=== PATIENT | male | born 1950 | race Caucasian/White ===

== ENCOUNTER 2019-03-07 11:59 | Outpatient (CLI) | payer MEDICARE, BC, SELFPAY | END 2019-03-07 12:19 | PROVIDERS: PCP Family Medicine; Visit Provider Urology | DX: R97.20 Elevated prostate specific antigen [PSA] (principal); Z80.42 Family history of malignant neoplasm of prostate | CPT/HCPCS: 36415; 84154 ==

== ENCOUNTER 2019-10-04 02:34 | Outpatient (CLI) | payer MEDICARE, BC, SELFPAY ==
[2019-10-04 09:24] LABS: ALT 33 U/L (16-63); AST 28 U/L (15-37); Alkaline Phosphatase 67 U/L (46-116); Anion Gap 12.5 mmol/L (3-11); BUN 15 mg/dL (7-18); Bilirubin, Total 0.6 mg/dL (0.2-1.0); CO2 26.5 mmol/L (21.0-32.0); CREATININE 0.78 mg/dL (0.70-1.30); Calcium 8.6 mg/dL (8.5-10.1); Calculated LDL 141 mg/dL (<100); Chloride 106 mmol/L (98-107); Cholesterol 221 mg/dL (<200); Glucose 89 mg/dL (74-106); HDL Cholesterol 30 mg/dL (40-60); Potassium 3.7 mmol/L (3.5-5.1); Sodium 145 mmol/L (136-145); Total Protein 6.9 g/dL (6.4-8.2); Triglyceride 250 mg/dL (<150)
== END 2019-10-04 02:54 ==
PROVIDERS: PCP Family Medicine; Visit Provider Family Medicine
DX: I10 Essential (primary) hypertension (principal); E78.5 Hyperlipidemia, unspecified
CPT/HCPCS: 36415; 80053; 80061

== ENCOUNTER 2020-03-17 02:24 | Outpatient (CLI) | payer MEDICARE, BC, SELFPAY ==
[2020-03-18 11:56] LABS: Free PSA/PSA Ratio 0.31 ratio
== END 2020-03-17 02:44 ==
PROVIDERS: PCP Family Medicine; Visit Provider Urology
DX: R97.20 Elevated prostate specific antigen [PSA] (principal); Z80.42 Family history of malignant neoplasm of prostate
CPT/HCPCS: 36415; 84154

== ENCOUNTER → 2020-03-18 13:19 | Outpatient (BNVA) | payer MEDICARE, BC, SELFPAY | PROVIDERS: PCP Family Medicine; Visit Provider Urology | DX: R97.20 Elevated prostate specific antigen [PSA] (principal); I10 Essential (primary) hypertension; R39.89 Other symptoms and signs involving the genitourinary system | CPT/HCPCS: 99213 ==

== ENCOUNTER 2020-06-03 13:42 | Outpatient (CLI) | payer MEDICARE, BC, SELFPAY ==
[2020-06-05 13:04] LABS: Patient Race White; SARS-CoV-2 RNA Undetected (Undetected); SARS-CoV-2 Specimen Source Nasopharynx
== END 2020-06-03 14:02 ==
PROVIDERS: PCP Family Medicine; Visit Provider Family Medicine
DX: Z20.828 Contact with and (suspected) exposure to other viral communicable diseases (principal)
CPT/HCPCS: U0003

== ENCOUNTER 2020-07-25 04:52 | Outpatient (CLI) | payer MEDICARE, BC, SELFPAY ==
[2020-07-27 06:14] LABS: Patient Race White; SARS-CoV-2 RNA Undetected (Undetected); SARS-CoV-2 Specimen Source Nasal
== END 2020-07-25 05:12 ==
PROVIDERS: PCP Family Medicine; Visit Provider Family Medicine
DX: Z20.828 Contact with and (suspected) exposure to other viral communicable diseases (principal)
CPT/HCPCS: U0003

== ENCOUNTER 2020-10-16 22:01 | Emergency (ER) | payer MEDICARE, BC, SELFPAY ==
[2020-10-16 22:05] VITALS: BP 140/84; PULSE 86; RESP 20; TEMP 36.5; O2SAT 94
--- NOTE | 2020-10-16 22:17 | W.ED.GENAD ---
Discharge Plan Disposition Patient Disposition: HOME Condition: Stable Discharge Details Clinical Impression: Laceration of scalp, Head injury Primary Care Provider: Jessica Carlos ED Provider: Jesús Nunn Home Meds and New Rx's Prescriptions: Continued multivitamin [One Daily] 1 EACH tablet 1 tab PO DAILY RF: 0 aspirin [Aspirin Low-Strength] 81 MG tablet,chewable 1 tab PO EVERY OTHER DAY RF: 0 ketoconazole 15 GM cream 15 gm Topical BID Qty: 1 RF: 2 Fish Oil 340-1,000 mg capsule 1 cap PO .QOD RF: 0 metronidazole 0.75 % cream 1 applic TP BID PRN (Reason: rosacea) Qty: 45 RF: 6 hydrochlorothiazide 25 mg tablet 25 mg PO DAILY Qty: 90 RF: 4 pravastatin 40 mg tablet 40 mg PO DAILY Qty: 90 RF: 4 amlodipine-benazepril [Lotrel] 5-20 mg capsule 1 cap PO DAILY Qty: 90 RF: 4 amlodipine-benazepril 5-20 mg capsule 1 - 4 cap PO DAILY RF: 0 Discharge Instructions Instructions: Head Injury (ED), Staple Care (ED) Additional Instructions: CT of head is unremarkable. Laceration repaired with 5 maxime. Keep the area clean and dry. You may apply antibiotic ointment daily. Coxsackie should be removed in 5-7 days, please return to the ER for this or make an appoint with your primary care provider. Watch for new or worsening symptoms and return to the ER for any concerns. Lastly, I would recommend contacting your primary care provider tomorrow to discuss outpatient reevaluation. Medical Decision Making 70-year-old gentleman presents having slipped and fallen earlier today striking his head sustaining a laceration. Given his age, will obtain head CT for intracranial pathology. Laceration will need to be repaired. Will update tetanus as his last tetanus status was 2014. Laceration repaired without difficulty. Tetanus updated. CT of head read by radiology as no intracranial bleed or skull fracture Make patient aware of his results. He has no additional questions or concerns. Remained hemodynamically stable under my care Medical Records Medical records reviewed: Yes I reviewed the patient's medical records. Imaging Data Radiologic Study: Attestation: I personally reviewed and interpreted this imaging study as follows: Imaging: CT Scan Radiologist's impression: CT head negative per radiology HPI General Mode of arrival: ambulatory. Date/Time Provider Initiated Documentation: 10/16/20 22:10. Limitations to Documentation: no limitations. Information obtained by: patient. HPI Narrative: This is a 70-year-old gentleman, past medical history of hypercholesterolemia, hypertension, not anticoagulated, presents to the ER for a head injury. He states earlier this afternoon he slipped near the stairs, falling backward striking his head. He denies any symptoms prior to the fall. He denies LOC, global headache, neck pain, visual changes, chest pain, shortness of breath, abdominal pain, nausea, vomiting, incontinence, numbness, tingling, weakness. He does admit to 2 glasses of wine. He is unsure of his last tetanus shot. Related Data Home Medications Medication Instructions Recorded Confirmed aspirin [Aspirin Low-Strength] 1 tab PO EVERY OTHER DAY tab-cap 11/23/12 10/16/20 multivitamin [One Daily] 1 tab PO DAILY 11/23/12 10/16/20 ketoconazole 15 gm TOPICAL BID #1 tube 12/20/16 10/16/20 metronidazole 0.75 % topical cream 1 applic TP BID PRN #45 gm 10/02/18 10/16/20 omega-3 fatty acids-fish oil 340 1 cap PO .QOD cap 10/02/18 10/16/20 mg-1,000 mg capsule amlodipine 5 mg-benazepril 20 mg 1 cap PO DAILY #90 cap 04/23/20 capsule hydrochlorothiazide 25 mg tablet 25 mg PO DAILY #90 tab-cap 04/23/20 pravastatin 40 mg tablet 40 mg PO DAILY #90 tab-cap 04/23/20 10/16/20 amlodipine-benazepril 1 - 4 cap PO DAILY 10/16/20 10/16/20 Previous Rx's Medication Instructions Recorded metronidazole 0.75 % topical cream 1 applic TP BID PRN #45 gm 10/02/18 amlodipine 5 mg-benazepril 20 mg 1 cap PO DAILY #90 cap 04/23/20 capsule hydrochlorothiazide 25 mg tablet 25 mg PO DAILY #90 tab-cap 04/23/20 pravastatin 40 mg tablet 40 mg PO DAILY #90 tab-cap 04/23/20 Allergies Allergy/AdvReac Type Severity Reaction Status Date / Time No Known Allergies Allergy Unverified 10/16/20 22:13 General Stated Complaint: Laceration ALE: 4 Review of Systems Constitutional Constitutional: Denies headache(s) and Denies weakness Eyes Eyes: Denies change in vision ENT Ears, Nose, Mouth, and Throat: Denies headache(s) and Denies neck pain Cardiovascular Cardiovascular: Denies chest pain and Denies dyspnea Respiratory Respiratory: Denies cough and Denies dyspnea Gastrointestinal Gastrointestinal: Denies abdominal pain, Denies nausea and Denies vomiting Musculoskeletal Musculoskeletal: Denies back pain, Denies neck pain, Denies numbness and Denies tingling Neurologic Neurologic: Denies headache(s), Denies numbness, Denies tingling and Denies weakness Hematologic/Lymphatic Hematologic/Lymphatic: Denies easy bleeding and Denies easy bruising PFSH Medical History Adenomatous polyps Elevated PSA Hyperlipidemia hypertension Surgical History Colonoscopy - IV Sedation 2011 Extraction of cataract Family History Mother , age 91 Essential hypertension Heart disease Hyperlipidemia Stroke Father , age 87 Essential hypertension Hyperlipidemia Neoplasm PROSTATE Stroke Sister No problems noted. Brother No problems noted. Maternal Grandfather , AGE 84 Heart disease Stroke Paternal Grandfather , age 53 Stomach cancer Maternal Grandmother , age 58 Heart disease Paternal Grandmother , age 58 Stomach cancer Sister No problems noted. Sister No problems noted. Daughter No problems noted. Social History Smoking/Tobacco Use Status: Former Tobacco Use Quit Date: 08/29/81 Tobacco: How many years used: 7 Second Hand Exposure: No Smoking risk assessment performed?: Yes Alcohol Intake: current Alcohol Intake frequency: a few times a week Alcohol type: wine Drug use: Never Substance use type: does not use Caregiver/Support person: No Household members: spouse Housing: house Communication Needs: None Pets and animals: No Sexually active: Yes Do you think of yourself as: straight/heterosexual Current gender identity: male What is your relationship status?: How often do you talk on the phone with friends or family?: once per week How often do you get together with friends or relatives?: once per week How often do you attend baptist or synagogue services?: 4 or more times per year Do you belong to any clubs or organized social groups?: yes Panel score (0-1 are the most socially isolated patients): 3 What type of physical activity do you participate in: walking Duration: 60-90 minutes/day Frequency: daily Brooke/Jehovah'S Witness: Jew Special brooke needs: No Seatbelt use: always Helmet use: No Drive intox or ride w/intox 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 3 cm vertical laceration. No active bleeding. Mild diffuse localized discomfort without crepitus. No foreign body. Ears: external ears normal, TM's normal bilaterally and EAC's normal General nose exam: external nose normal Face and sinus: normal facial exam Mouth: moist mucous membranes Eyes General: appearance normal, both eyes and all related structures Alignment and Position: alignment normal Periorbital: periorbital findings normal Eyelids: eyelids normal Conjunctivae: conjunctivae normal Sclera: sclerae normal Cornea: corneas normal Pupils: PERRL EOM: EOM intact bilaterally Direct ophthalmoscopy: normal light reflex Neck Neck: normal visual inspection, full ROM, trachea midline, supple and nontender Resp Effort & Inspection: normal respiratory effort and able to speak in complete sentences Auscultation: clear to auscultation bilaterally Cardio Rate: regular rate Rhythm: regular rhythm GI Inspection: normal to inspection Palpation: soft and nontender Back/Spine/Pelvis Back: No back tenderness Skin General skin exam: no rashes or lesions noted Neuro General: patient alert, patient awake, patient oriented x3, moves all extremities and no focal motor deficits Cranial Nerves: CN's II-XI intact bilaterally Cognition: normal cognition Speech: speech normal Gait: normal gait Motor: muscle tone normal throughout Sensory Exam: no sensory deficits noted Extrem General: normal to inspection and full ROM Psych Appearance: grossly normal Mental Status: mental status grossly normal Course Vital Signs Vital signs: Vital Signs Temperature 36.5 C 10/16/20 22:05 Pulse 86 10/16/20 22:05 Respiratory Rate 20 10/16/20 22:05 Blood Pressure 140/84 10/16/20 22:05 Pulse Oximetry 94 10/16/20 22:05 Temperature 36.5 C 10/16/20 22:05 Temperature Source Skin 10/16/20 22:05 Pulse 86 10/16/20 22:05 Respiratory Rate 20 10/16/20 22:05 Respiratory Effort Non-Labored 10/16/20 22:09 Blood Pressure 140/84 10/16/20 22:05 Blood Pressure Position Sitting 10/16/20 22:05 Pulse Oximetry 94 10/16/20 22:05 Oxygen Delivery Method Room Air 10/16/20 22:05 Oxygen Flow Rate 0 10/16/20 22:05 Pain Level 0 10/16/20 22:14 Procedures Laceration Laceration 1: Site: scalp Side (If applicable): left Size (cm): 3 Description: linear Depth: simple, single layer Local Anesthetic: other anesthetic (LET) Amount of anesthesia used (mL): 4 Pre-repair: wound explored, irrigated extensively and deep structures intact Skin layer closed with: other (Coxsackie) Number of sutures: 5
[2020-10-16] MEDS: Lidocaine/Epinephri/Tetracaine Topical Gel 3 ML (22:18)
--- NOTE | 2020-10-16 22:26 | DI.CT_ITS ---
EXAM: CT HEAD WO CLINICAL HISTORY: fall/head injury. TECHNIQUE: Imaging Protocol: Axial computed tomography images with coronal and sagittal reformatted images were created and reviewed COMPARISON: No exams were available for comparison FINDINGS: Ventricles and Extra axial spaces: Normal in size and morphology for the patient's age. Hemorrhage: None. Cerebral parenchyma: Mild atrophy, consistent with the patient's age. Question of a an old lacunar i nfarct versus prominent perivascular space in the right basal ganglia. Midline shift: None. Brainstem/Cerebellum: Normal. Calvarium: Normal. Visualized Paranasal sinuses/Mastoids: Mild mucosal thickening anteriorly in the left maxillary sinus . Soft Tissues: Laceration left parietal scalp. IMPRESSION: Left parietal scalp laceration. No acute intracranial process. RADIATION DOSE DELIVERED: 912.66mGy.cm Total DLP DATA REPOSITORY: All CT scans at this facility are submitted to the National Radiology Data Registry (NRDR) Dose Index Registry (DIR) with the [employer] (ACR). RADIATION OPTIMIZATION: All CT scans at this facility use at least one of these dose optimization te chniques: automated exposure control; mA and/or kV adjustment per patient size (includes targeted exa ms where dose is matched to clinical indication); or iterative reconstruction.
--- NOTE | 2020-10-16 22:45 | DI.VRAD_ITS ---
PROCEDURE INFORMATION: Exam: CT Head Without Contrast Exam date and time: 10/16/2020 10:13 PM Age: 70 years old Clinical indication: Injury or trauma; Blunt trauma (contusions or hematomas) and laceration; Consciousness not specified; Without residual foreign body; Scalp; Injury date: 10/16/20; Injury details: Fall/ laceration to left parietal region; Patient HX: Head trauma 7+/- years ago TECHNIQUE: Imaging protocol: Computed tomography of the head without contrast. Total images: 1066 Radiation optimization: All CT scans at this facility use at least one of these dose optimization techniques: automated exposure control; mA and/or kV adjustment per patient size (includes targeted exams where dose is matched to clinical indication); or iterative reconstruction. COMPARISON: No relevant prior studies available. FINDINGS: Brain: There is a 1 x 0.4 cm well-circumscribed hypodensity in the anterior limb of the right internal capsule consistent with a prior lacunar infarct. There is no intra or extra-axial bleed. No edema or mass effect. There is mild diffuse atrophy and white matter disease. Cerebral ventricles: No hydrocephalus. Basal cisterns are patent. Bones/joints: No significant bony abnormality. No fracture. Paranasal sinuses: There is mucosal thickening involving the anterior wall of the visualized left maxillary sinus. Mastoid air cells: Mastoid air cells are clear. Orbital cavity: Unremarkable. Soft tissues: There is a small area of soft tissue injury involving the left superior scalp. No associated opaque foreign body. IMPRESSION: No intracerebral bleed. Dictated and Authenticated by: Nadeem Nevarez MD. Ordering:RAGHU Espinosa MD
[2020-10-16 22:53] VITALS: BP 140/84; PULSE 86; RESP 20; TEMP 36.5; O2SAT 94
== END 2020-10-16 22:55 | disposition home or self-care (01) ==
PROVIDERS: Emergency Provider Physician Assistant; PCP Family Medicine
DX: S01.01XA Laceration without foreign body of scalp, initial encounter (principal); W01.10XA Fall on same level from slipping, tripping and stumbling with subsequent striking against unspecified object, initial encounter; I10 Essential (primary) hypertension
CPT/HCPCS: 12002; 90471; 70450

== ENCOUNTER → 2021-03-24 07:49 | Outpatient (BNVA) | payer MEDICARE, BC, SELFPAY | PROVIDERS: PCP Family Medicine; Referring Provider Family Medicine; Visit Provider Urology | DX: K64.9 Unspecified hemorrhoids (principal); K63.5 Polyp of colon; R97.20 Elevated prostate specific antigen [PSA]; Z80.42 Family history of malignant neoplasm of prostate | CPT/HCPCS: 99213; 99215 ==

== ENCOUNTER 2021-03-24 14:44 | Outpatient (REF) | payer MEDICARE, BC, SELFPAY ==
[2021-03-24 09:28] LABS: ALT 35 U/L (16-63); AST 25 U/L (15-37); Albumin 4.2 g/dL (3.4-5.0); Alkaline Phosphatase 72 U/L (46-116); Anion Gap 11.4 mmol/L (3-11); BUN 15 mg/dL (7-18); Bilirubin, Total 0.6 mg/dL (0.2-1.0); CO2 25.6 mmol/L (21.0-32.0); CREATININE 0.8 mg/dL (0.70-1.30); Calcium 9.1 mg/dL (8.5-10.1); Calculated LDL 186 mg/dL (<100); Chloride 106 mmol/L (98-107); Cholesterol 248 mg/dL (<200); Glucose 112 mg/dL (74-106); HDL Cholesterol 43 mg/dL (40-60); Potassium 4.4 mmol/L (3.5-5.1); Sodium 143 mmol/L (136-145); Total Protein 7.5 g/dL (6.4-8.2); Triglyceride 97 mg/dL (<150)
== END 2021-03-24 14:45 | disposition home or self-care (01) ==
LOC: LBN 14:44
PROVIDERS: PCP Family Medicine; Visit Provider Family Medicine
DX: I10 Essential (primary) hypertension (principal); R97.20 Elevated prostate specific antigen [PSA]
CPT/HCPCS: 80053; 80061; 84154

== ENCOUNTER → 2021-04-24 09:18 | Outpatient (BNVA) | payer MEDICARE, BC, SELFPAY | PROVIDERS: PCP Family Medicine; Referring Provider Family Medicine; Visit Provider Surgery | DX: Z12.11 Encounter for screening for malignant neoplasm of colon (principal); Z86.010 Personal history of colon polyps ==

== ENCOUNTER 2021-05-18 01:46 | Outpatient (CLI) | payer MEDICARE, BC, SELFPAY ==
[2021-05-18 11:08] LABS: Source Nasal/Nares
[2021-05-18 20:39] LABS: COVID-19 PCR Negative (Negative)
== END 2021-05-18 01:47 | disposition home or self-care (01) ==
LOC: LBO 01:46
PROVIDERS: PCP Family Medicine; Visit Provider Surgery
DX: Z20.822 Contact with and (suspected) exposure to COVID-19 (principal); Z01.818 Encounter for other preprocedural examination
CPT/HCPCS: 87635

== ENCOUNTER 2021-05-20 10:48 | Day surgery (SDC) | payer MEDICARE, BC, SELFPAY ==
--- NOTE | 2021-05-20 08:44 | W.COLOREPORT ---
Colonoscopy Report Date of procedure: 05/20/21 Pre-op diagnosis general: Colon cancer screening, hx of polyps Post-op diagnosis procedure note: same (polyp, external hemorrhoids) Procedure: Colonoscopy with polypectomy Surgeon: Beatris Chapman Anesthesia Type: General:No Airway Estimated blood loss (mL): 3 Pathology: other (sigmoid polyp) Complications: None Disposition: same day Indications: Mr. Back is a pleasant 71 year old male here to discuss another colonoscopy. He has a history of colon polyps. He has had no GI symptoms. He does have a history of hemorrhoids that bother him infrequently. Colonoscopy procedure and its risks were reviwed in detail. Stop aspirin 5 days prior to the procedure. Risks, benefits and complications have been reviewed. Complications include but are not limited to bleeding, pain, perforation, missed small lesion/polyp, sore throat, aspiration and adverse reaction to the medications. Questions were entertained and answered to their satisfaction and they wished to proceed. No guarantees were given or implied. COVID-19 testing explained to the patient. Reason for test reviewed. Patient understands and agrees to testing. Colonoscopy under sedation Prep: Miralax/Dulcolax Procedure Start Time: 14:28 Procedure End Time: 15:08 Retraction Time: 18 minutes Findings: One sessile polyp Grade 2 external hemorrhoid Procedure Description: After informed consent was obtained the patient was taken to the procedure room and placed in a left decubitous position. Monitors were applied and a time out was done. The patients name, date of , procedure, allergies to medications and metal in their body was reviewed. The patient was then sedated. Once sedated and comfortable a rectal exam was done. External exam showed a hemorrhoid. Internal exam revealed a normal sphincter tone and no palpable masses. The prostate felt smooth. The scope was then introduced and retro-flexed. No internal hemorrhoids, polyps or masses were identified on retro-flexion. The scope was then advanced to the cecum with some difficulty due to a tortuous colon. The ileocecal vlave and appendiceal orifice were identified. The prep was adequate. The scope was then slowly retracted over 18 minutes back into the rectum. Polyps were removed with cold forceps in the sigmoid colon. There was no diverticulosis noted. The scope was removed and the patient was woken up and taken back to Same day surgery in stable condition. The patient tolerated the procedure well and there were no immediate complications. Follow up: The patient should follow up in 5 years unless they develop changes in bowel habits or other new gastrointestinal complaints.
--- NOTE | 2021-05-20 08:45 | W.PM.DSUDISC ---
Discharge Plan Disposition Patient Disposition: HOME Condition: Good Discharge Details Reason For Visit: Colonoscopy Attending Provider: Beatris Chapman Primary Care Provider: Jessica Carlos Home Meds and New Rx's Prescriptions: Continued multivitamin [One Daily] 1 EACH tablet 1 tab PO DAILY RF: 0 aspirin [Aspirin Low-Strength] 81 MG tablet,chewable 1 tab PO EVERY OTHER DAY RF: 0 ketoconazole 15 GM cream 15 gm Topical BID Qty: 1 RF: 2 Fish Oil 340-1,000 mg capsule 1 cap PO .QOD RF: 0 metronidazole 0.75 % cream 1 applic TP BID PRN (Reason: rosacea) Qty: 45 RF: 6 hydrochlorothiazide 25 mg tablet 25 mg PO DAILY Qty: 90 RF: 4 amlodipine-benazepril [Lotrel] 5-20 mg capsule 1 cap PO DAILY Qty: 90 RF: 4 atorvastatin 40 mg tablet 40 mg PO DAILY Qty: 30 RF: 3 Discontinued polyethylene glycol 3350 17 gram/dose powder 238 g PO ONCE Qty: 238 RF: 0 bisacodyl [Dulcolax (bisacodyl)] 5 mg tablet,delayed release (DR/EC) 5 mg PO ONCE Qty: 4 RF: 0 Discharge Instructions Instructions: Hemorrhoids (DC) Additional Instructions: Findings: one polyp external hemorrhoids Follow up: 5 years Please call if you develop: fevers >101.5 Nausea or Vomiting Abdominal pain that is not transient Rectal bleeding that is more then a tbsp A hard abdomen and inability to pass gas DAY SURGERY UNIT POST ENDOSCOPY INSTRUCTIONS Instructions for everyone who is given Anesthesia: For your safety, please do the following for the next 24 Hours: a. Do not drive or operate dangerous equipment b. Do not drink alcohol beverages or use any recreational drugs for the first 24 hours or while taking pain medications. The medications in your body may have a reaction that can be dangerous. c. Do not make any important decisions or sign any important papers 1. Generally there are no restrictions on your activity after a day or so has gone by, but you may feel a bit fatigued for a few days. 2. After you arrive home you may have a light meal and return to a normal diet as you can tolerate it without feeling sick to your stomach. 3. After surgery, you may feel pain or discomfort. This should be only transient, but if it persists please contact your doctor. 4. If there are any questions regarding the findings of your procedure, please feel free to contact your doctor. 6. If you are unable to contact your doctor with a problem, contact the hospital at [phone]. 7. Continue all your regular medications unless directed otherwise. I understand the above instructions and have no questions. Signature of Patient or Responsible Adult Escort Date/Time Name of Responsible Adult Escort Signature of Nurse Date/Time Activity:: Activity as Tolerated Diet:: As Tolerated Discharge Orders Discharge Orders: Discharge Order (Routine); Ordered 05/20/21 Ordered By: Beatris Chapman
[2021-05-20 11:30] VITALS: BP 166/109; PULSE 67; RESP 16; TEMP 36.5; O2SAT 95
[2021-05-20] MEDS: Lactated Ringers 1,000 ML 80 ML IV (11:56)
--- NOTE | 2021-05-20 12:38 | W.ANESPRE ---
General Info Date of Service Date Performed: 05/20/21 Height: 5 ft 11 in Weight: 88.9 kg Body Mass Index (BMI): 27.3 Surgical Procedure: Operation Date: 05/20/21 13:35 Proposed Procedures Side Surgeon p Colonoscopy Beatris Chapman MD Meds Allergies and Home Medications Allergies Allergy/AdvReac Type Severity Reaction Status Date / Time No Known Allergies Allergy Verified 05/20/21 11:38 Home Medication Medication Instructions Recorded aspirin [Aspirin Low-Strength] 1 tab PO EVERY OTHER DAY tab-cap 11/23/12 multivitamin [One Daily] 1 tab PO DAILY 11/23/12 ketoconazole 15 gm TOPICAL BID #1 tube 12/20/16 metronidazole 0.75 % topical cream 1 applic TP BID PRN #45 gm 10/02/18 omega-3 fatty acids-fish oil 340 1 cap PO .QOD cap 10/02/18 mg-1,000 mg capsule amlodipine 5 mg-benazepril 20 mg 1 cap PO DAILY #90 cap 04/23/20 capsule hydrochlorothiazide 25 mg tablet 25 mg PO DAILY #90 tab-cap 04/23/20 atorvastatin 40 mg tablet 40 mg PO DAILY #30 tab 04/20/21 bisacodyl 5 mg tablet,delayed 5 mg PO ONCE #4 tab 05/13/21 release polyethylene glycol 3350 17 238 g PO ONCE #238 g 05/13/21 gram/dose oral powder Current Visit Medications: Current Medications Generic Name Dose Route Start Last Admin Trade Name Freq PRN Reason Stop Dose Admin Hyoscyamine Sulfate 0.125 mg 05/20/21 08:44 Hyoscyamine 0.125 Mg Sl/Oral/Chew SL DIRECTED PRN Ringer's Solution 1,000 mls @ 80 mls/hr 05/20/21 06:00 05/20/21 11:56 IV 06/18/21 23:59 80 mls/hr INFUSION ANDRZEJ Administration IV Miscellaneous Supplies 1 each 05/20/21 06:00 Iv Access IV 06/18/21 23:59 DIRECTED ANDRZEJ Ondansetron HCl 4 mg 05/20/21 08:44 Ondansetron 4 Mg/2 Ml Vial IVP Q4H PRN PRN Nausea / Vomiting Sodium Chloride 0 ml 05/20/21 06:00 Normal Saline Flush 10 Ml Syr IV 06/18/21 23:59 PRN PRN Sodium Chloride 0 ml 05/20/21 06:00 Normal Saline 10 Ml Vial IJ 06/18/21 23:59 DIRECTED PRN Sterile Water 0 ml 05/20/21 06:00 Water,Injection,Sterile 10 Ml Vial IJ 06/18/21 23:59 DIRECTED PRN PFSH Active Problems Active Problems: Problem Status Onset Code Encounter for colonoscopy due to history of adenomatous colonic polyps Z12.11, Z86.010 Screening for colon cancer Z12.11 Hemorrhoids K64.9 Elevated PSA R97.20 Family history of prostate cancer Z80.42 Hyperlipidemia E78.5 Polyp of colon K63.5 Medical History Medical History Adenomatous polyps Elevated PSA Essential hypertension Hemorrhoids History of tobacco use Hyperlipidemia hypertension Screening for colon cancer Surgical History Surgical History Colonoscopy - IV Sedation 2011 Extraction of cataract Tobacco Smoking/Tobacco Use Status: Former Tobacco Use Tobacco: How many years used: 7 Passive smoking exposure: Yes Second hand exposure: No Alcohol Alcohol Intake: current Alcohol intake frequency: a few times a week Alcohol type: wine Substance Use Substance use: Never Substance use type: does not use Vital Signs and Lab Results Vital Signs Most Recent Vital Signs in EMR: Most Recent Vital Signs Temp Pulse Resp BP Pulse Ox 36.5 C 67 16 166/109 H 95 05/20/21 11:30 05/20/21 11:30 05/20/21 11:30 05/20/21 11:30 05/20/21 11:30 Lab Results Blood Type / Crossmatch: No Data to Display Complete Blood Count: No Data to Display Complete Metabolic Panel: No Data to Display Liver Function Panel: No Data to Display Coagulation Panel: No Data to Display Cardiac Panel: No Data to Display Arterial Blood Gas: No Data to Display Venous Blood Gas: No Data to Display Pancreas Panel: No Data to Display Thyroid Panel: No Data to Display Infectious Disease: Coronavirus (COVID-19)(PCR) Negative (Negative) 05/18/21 08:30 05/18/21 Coronavirus 2019 Source Nasal/Nares 05/18/21 08:30 05/18/21 Blood Cultures: No Data to Display Toxicology Panel: No Data to Display Anesthesia Assessment and Plan Anesthesia History Personal History: No History of Anesthesia Complications Family History: No Family History of Anesthesia Complications Exercise Tolerance Exercise Tolerance: Metabolic Equivalents>4 Pertinent Negatives Pertinent Negatives: No Symptoms of GERD, No Major Cardiovascular Symptoms or Complaints, No Major Pulmonary Symptoms or Complaints and No History of CVA/TIA Cardiac & Pulmonary Exam Cardiac Exam: Normal S1/S2 Heart Sounds Pulmonary Exam: Clear Bilateral Breath Sounds and No cough or Cold Airway Exam Known Difficult Airway: No Mallampati Class: 2 Mouth Opening: Normal (> 3cm) Thyromental Distance: Greater than 3 cm Neck Range of Motion: Full ROM Neck Circumference: Normal Teeth Condition: Normal Dentition and Removable Dentures/Plates Upper ASA Classification ASA Score: ASA 2 Emergency Case?: No NPO Status NPO Status: NPO Clears >2 hours, Solids >8 hours Anesthesia Plan Resuscitation Status: Full Code Anesthesia Technique: General Anesthesia Airway Planned: Natural Airway Monitors Used: Standard Monitors
[2021-05-20 12:51] VITALS: BMI 27.3
--- NOTE | 2021-05-20 15:06 | BOWEL_PTH ---
PATIENT: Dewayne Back LOC: [facility] U#:[id number] AGE/SX: 71/M ROOM: RE05/20/[address]: Beatris Chapman MD : [id number] BED: DIS: 05/20/2021 SPEC #: [id number] RECD: 05/20/21 17:41 STATUS: KELL RE #: [id number] MILA: 05/20/21 15:[address]: Beatris Chapman DEPT: Surgical Specimen RECD BY: Mendy Brandon ENTERED: 05/20/21 17:41 SP TYPE: Bowel OTHR DR: Jessica Carlos MD Tissues: 1 - BIOPSY BOWEL Procedures: GROSS AND MICRO LEVEL 4 Comments: [id number]
[2021-05-20 15:15] VITALS: BP 133/87; PULSE 51; RESP 18; TEMP 36.2; O2SAT 93
--- NOTE | 2021-05-20 15:22 | W.ANESPOSTOP ---
Postoperative Evaluation Date, Time and Location Date Performed: 05/20/21 Time Performed: 15:22 Patient Location: Day Surgery Unit Vital Signs Most Recent Imported Vital Signs: Most Recent Vital Signs Temp Pulse Resp BP Pulse Ox 36.2 C L 51 L 18 133/87 93 05/20/21 15:15 05/20/21 15:15 05/20/21 15:15 05/20/21 15:15 05/20/21 15:15 Pain Score Most Recent Pain Score: Most Recent Pain Score Pain Level 0 05/20/21 15:15 Assessment Mental Status: Arousable with meaningful communication Airway and Respiratory Function: Patent airway with normal (patient baseline) respiratory exam Cardiovascular Function: Hemodynamically Stable Hydration Status: Adequately Hydrated Nausea & Vomiting: No Nausea or Vomiting Pain: Pt. Denies Any Pain Peripheral Nerve Block: Patient did not receive a nerve block
[2021-05-20 15:45] VITALS: BP 151/84; PULSE 50; RESP 16; TEMP 36.1; O2SAT 94
== END 2021-05-20 16:10 | disposition home or self-care (01) ==
LOC: SUR 10:48
PROVIDERS: PCP Family Medicine; Visit Provider Surgery
PROC: 0DJD8ZZ Inspection of Lower Intestinal Tract, Via Natural or Artificial Opening Endoscopic (ICD-10-PCS; CPT 45378; principal; 2021-05-20 13:30)
DX: Z12.11 Encounter for screening for malignant neoplasm of colon (principal); D12.5 Benign neoplasm of sigmoid colon; Z86.010 Personal history of colon polyps; I10 Essential (primary) hypertension; E78.5 Hyperlipidemia, unspecified; K64.4 Residual hemorrhoidal skin tags
CPT/HCPCS: 45380; 88305; J2704

== ENCOUNTER 2022-03-19 02:27 | Outpatient (CLI) | payer MEDICARE, BC, SELFPAY ==
[2022-03-19 09:23] LABS: ALT 50 U/L (16-63); Anion Gap 14.3 mmol/L (3-11); BUN 15 mg/dL (7-18); CO2 23.7 mmol/L (21.0-32.0); Calcium 9.5 mg/dL (8.5-10.1); Calculated LDL 134 mg/dL (<100); Chloride 104 mmol/L (98-107); Cholesterol 194 mg/dL (<200); Glucose 89 mg/dL (74-106); HDL Cholesterol 43 mg/dL (40-60); Potassium 4.1 mmol/L (3.5-5.1); Sodium 142 mmol/L (136-145); Triglyceride 87 mg/dL (<150)
[2022-03-19 19:46] LABS: PSA, Screening 10.6 ng/mL (<=6.5)
== END 2022-03-19 02:28 | disposition home or self-care (01) ==
LOC: LBO 02:27
PROVIDERS: Family Medicine; PCP Nurse Practitioner Family; Visit Provider Urology
DX: E78.5 Hyperlipidemia, unspecified (principal); I10 Essential (primary) hypertension; R97.20 Elevated prostate specific antigen [PSA]; Z12.5 Encounter for screening for malignant neoplasm of prostate
CPT/HCPCS: 36415; 80048; 80061; 84153; 84460

== ENCOUNTER → 2022-03-23 09:51 | Outpatient (BNVA) | payer MEDICARE, BC, SELFPAY | PROVIDERS: PCP Nurse Practitioner Family; Referring Provider Nurse Practitioner Family; Visit Provider Urology | DX: K63.5 Polyp of colon (principal); K64.9 Unspecified hemorrhoids; R97.20 Elevated prostate specific antigen [PSA]; Z80.42 Family history of malignant neoplasm of prostate | CPT/HCPCS: 99214 ==

== ENCOUNTER 2023-03-15 02:57 | Outpatient (CLI) | payer MEDICARE, BC, SELFPAY | END 2023-03-15 02:58 | disposition home or self-care (01) | LOC: LBO 02:57 | PROVIDERS: PCP Nurse Practitioner Family; Visit Provider Urology | DX: R97.20 Elevated prostate specific antigen [PSA] (principal) | CPT/HCPCS: 36415; 84153 ==

== ENCOUNTER → 2023-04-29 07:50 | Outpatient (BNVA) | payer MEDICARE, BC, SELFPAY | PROVIDERS: PCP Nurse Practitioner Family; Visit Provider Urology | DX: R97.20 Elevated prostate specific antigen [PSA] (principal); Z80.42 Family history of malignant neoplasm of prostate | CPT/HCPCS: 99213 ==

== ENCOUNTER 2023-08-15 14:55 | Outpatient (CLI) | payer MEDICARE, BC, SELFPAY ==
[2023-08-15 15:02] LABS: CREATININE 0.9 mg/dL (0.70-1.30); Estimated GFR 89.07 (mL/min/1.73m2)
== END 2023-08-15 14:56 | disposition home or self-care (01) ==
LOC: LBO 14:55
PROVIDERS: PCP Nurse Practitioner Family; Visit Provider Nurse Practitioner Family
DX: I10 Essential (primary) hypertension (principal)
CPT/HCPCS: 36415; 82565; 84132

== ENCOUNTER → 2023-10-28 16:37 | Outpatient (CLI) | payer MEDICARE, BC, SELFPAY ==
--- NOTE | 2023-10-28 | DI.RAD_ITS ---
Exam(s) XR CHEST 2V PA LATERAL EXAM: XR CHEST 2V PA LATERAL CLINICAL HISTORY: COUGH R05.9 TECHNIQUE: 2D digital imaging was performed of the chest. Two images were obtained. PA and lateral views were obtained. COMPARISON: CR CHEST 2 VIEWS PA,LAT from 11/01/2017 FINDINGS: MEDIASTINUM: Normal. HEART: Normal. PULMONARY VASCULATURE: Normal. LUNGS: Clear. PLEURAL SPACE: No pleural effusion or pneumothorax. BONE:Within normal limits for the patient's age. OTHER FINDINGS:Normal. IMPRESSION: No acute pulmonary findings. DATA REPOSITORY: RADIATION DOSE DELIVERED:
== END ==
PROVIDERS: PCP Nurse Practitioner Family; Visit Provider Physician Assistant Medical
DX: R05.8 Other specified cough (principal)
CPT/HCPCS: 71046

== ENCOUNTER 2024-04-27 17:11 | Outpatient (CLI) | payer MEDICARE, BC, SELFPAY ==
[2024-04-27 22:37] LABS: PSA, Diagnostic 11.8 ng/mL (<=6.5)
== END 2024-04-27 17:12 | disposition home or self-care (01) ==
LOC: LBO 17:15
PROVIDERS: PCP Nurse Practitioner Family; Visit Provider Urology
DX: R97.20 Elevated prostate specific antigen [PSA] (principal)
CPT/HCPCS: 36415; 84153

== ENCOUNTER → 2024-05-04 07:44 | Outpatient (BNVA) | payer MEDICARE, BC, SELFPAY | PROVIDERS: PCP Nurse Practitioner Family; Referring Provider Nurse Practitioner Family; Visit Provider Urology | DX: N42.89 Other specified disorders of prostate (principal); R97.20 Elevated prostate specific antigen [PSA]; Z80.42 Family history of malignant neoplasm of prostate | CPT/HCPCS: 99214 ==

== ENCOUNTER 2024-08-15 14:19 | Outpatient (CLI) | payer MEDICARE, BC, SELFPAY ==
[2024-08-15 14:36] LABS: Anion Gap 9.1 mmol/L (3-11); BUN 24 mg/dL (7-18); CO2 26.9 mmol/L (21.0-32.0); Calcium 9.4 mg/dL (8.5-10.1); Calculated LDL 129 mg/dL (<100); Chloride 104 mmol/L (98-107); Cholesterol 202 mg/dL (<200); Glucose 153 mg/dL (74-106); HDL Cholesterol 49 mg/dL (40-60); Sodium 140 mmol/L (136-145); Triglyceride 124 mg/dL (<150)
== END 2024-08-15 14:20 | disposition home or self-care (01) ==
LOC: LBO 14:21
PROVIDERS: PCP Nurse Practitioner Family; Visit Provider Nurse Practitioner Family
DX: Z13.6 Encounter for screening for cardiovascular disorders (principal); Z13.1 Encounter for screening for diabetes mellitus
CPT/HCPCS: 36415; 80048; 80061

== ENCOUNTER 2024-12-07 11:29 | Emergency (ER) | payer MEDICARE, BC, SELFPAY ==
[2024-12-07 11:32] VITALS: BP 133/70; PULSE 76; RESP 18; TEMP 36.8; O2SAT 95
[2024-12-07 11:36] VITALS: BP 133/70; PULSE 70; RESP 18; TEMP 36.8; O2SAT 95
--- NOTE | 2024-12-07 12:01 | W.ED.GENAD ---
Discharge Plan Disposition Patient Disposition: Home Condition: Stable Discharge Details Clinical Impression: Lesion of skin of left ear, History of skin cancer Primary Care Provider: Mark Anthony Ramos ED Provider: Javier Ocasio Home Meds and New Rx's Prescriptions: No Action multivitamin with folic acid [Tab-A-Manuel] 400 mcg tablet PO Patient Comments: TAKE ONE TABLET BY MOUTH EVERY DAY (DME) [facility] See Rx Instructions .ROUTE .MEDSUPPLY Qty: 1 Patient Comments: USE DIRECTED Rx Instructions: As directed Fish Oil 340-1,000 mg capsule 1 cap PO .QOD aspirin 81 mg tablet,chewable 1 tab PO EVERY OTHER DAY Qty: 90 3RF metronidazole 0.75 % cream 1 applic TP BID PRN (Reason: rosacea) Qty: 45 6RF Rx Instructions: local application on cheeks twice a day as needed hydrochlorothiazide 25 mg tablet 25 mg PO DAILY Qty: 90 3RF atorvastatin 40 mg tablet 40 mg PO DAILY Qty: 90 3RF amlodipine-benazepril 10-40 mg capsule 1 cap PO DAILY Qty: 90 3RF multivitamin Tablet 1 tab PO DAILY Qty: 90 3RF Discharge Instructions Additional Instructions: At this time there is a noted 5 mm x 2 mm with 1.5 mm raised lesion on the top of your left ear. Given your history of skin cancer it is very important that you follow-up with dermatology and a referral has been sent. If you have any new or significant worsening of symptoms feel free to return the emergency department for further evaluation otherwise follow-up with specialist as discussed Referrals: [facility] [Outside] - 1 week (Please follow-up with dermatology) Discharge Data Discharge Date/Time-TO BE ENTERED AT DEPARTURE: 12/07/24 12:11 HPI General Mode of arrival: ambulatory. Date/Time Provider Initiated Documentation: 12/07/24 11:32. Limitations to Documentation: no limitations. Information obtained by: patient and family. History of Present Illness 74 year old M presents to the emergency department with the chief complaint of Left ear skin lesion, described as similar to prior episodes, Patient started experiencing this week(s) (5) and it has been constant. No relieving factors improve symptom(s), No exacerbating factors reported . Patient notes no other symptoms.. Patient did receive the following treatments prior to arrival, none Related Data Home Medications ?Medication ?Instructions ?Recorded ?Confirmed omega-3 fatty acids-fish oil 340 1 cap PO .QOD 10/02/18 12/07/24 mg-1,000 mg capsule (Fish Oil) aspirin 81 mg chewable tablet 1 tab PO EVERY OTHER DAY #90 03/28/23 12/07/24 tab-caps metronidazole 0.75 % topical cream 1 applic topical BID PRN rosacea 03/28/23 12/07/24 #45 grams hydrochlorothiazide 25 mg tablet 25 mg PO DAILY #90 tab-caps 02/08/24 12/07/24 atorvastatin 40 mg tablet 40 mg PO DAILY #90 tabs 05/23/24 12/07/24 amlodipine 10 mg-benazepril 40 mg 1 cap PO DAILY #90 caps 06/02/24 12/07/24 capsule multivitamin 1 tab PO DAILY #90 tabs 06/04/24 12/07/24 inhalational spacing device #1 ea 06/25/24 06/25/24 ([facility] spacer) multivitamin with folic acid 400 tab PO 06/25/24 06/25/24 mcg tablet (Tab-A-Manuel) Previous Rx's ?Medication ?Instructions ?Recorded aspirin 81 mg chewable tablet 1 tab PO EVERY OTHER DAY #90 03/28/23 tab-caps metronidazole 0.75 % topical cream 1 applic topical BID PRN rosacea 03/28/23 #45 grams hydrochlorothiazide 25 mg tablet 25 mg PO DAILY #90 tab-caps 02/08/24 atorvastatin 40 mg tablet 40 mg PO DAILY #90 tabs 05/23/24 amlodipine 10 mg-benazepril 40 mg 1 cap PO DAILY #90 caps 06/02/24 capsule multivitamin 1 tab PO DAILY #90 tabs 06/04/24 Allergies Allergy/AdvReac Type Severity Reaction Status Date / Time No Known Allergies Allergy Verified 12/07/24 11:38 General Stated Complaint: GenMedical ALE: 4 Review of Systems Constitutional Constitutional: Denies chills and Denies fever(s) Integumentary/Breasts Skin/Breast: Reports as per HPI, Reports changing lesions, Denies pruritus, Denies skin ulcer and Denies sores Hematologic/Lymphatic Hematologic/Lymphatic: Denies lymphadenopathy Exam Const General: cooperative, no acute distress and not ill appearing Orientation: alert, awake and oriented x3 [facility] Head: normal to inspection Ears: external ear abnormal other (noted 5 mm x 2 mm with 1.5 mm raised lesion to the superior aspect of the ear), mastoid abnormal and no periauricular adenopathy Face and sinus: normal facial exam Mouth: moist mucous membranes Resp Effort & Inspection: normal respiratory effort, able to speak in complete sentences and no respiratory distress Neuro General: patient alert, patient awake, patient oriented x3, moves all extremities and no focal motor deficits Sensory Exam: no sensory deficits noted Course Vital Signs Vital signs: Vital Signs Temperature 36.8 C 12/07/24 11:32 Pulse 76 12/07/24 11:32 Respiratory Rate 18 12/07/24 11:32 Blood Pressure 133/70 12/07/24 11:32 Pulse Oximetry 95 12/07/24 11:32 Temperature 36.8 C 12/07/24 11:36 Pulse 70 12/07/24 11:36 Respiratory Rate 18 12/07/24 11:36 Blood Pressure 133/70 12/07/24 11:36 Pulse Oximetry 95 12/07/24 11:36 Oxygen Delivery Method Room Air 12/07/24 11:32 Oxygen Flow Rate 0 12/07/24 11:32 Pain Level 0 12/07/24 11:36 Medical Decision Making Patient presenting to the emergency department for chief complaint of lesion to the top superior aspect of his left ear. Patient has significant history of skin cancer with multiple surgeries for removal. He does state that he has noted this lesion for the past 5 weeks that has grown significantly over that period of time. He did have a significant cancerous lesion that was removed removed from the posterior aspect of the same ear. Patient denies all other symptoms. Physical exam revealsnoted 5 mm x 2 mm with 1.5 mm raised lesion that is more white in color and scaly. Given patient's significant history of skin cancer I do feel that it is prudent that he sees dermatology sooner than later especially given reported rapid growth of this area over the past 5 weeks. Patient otherwise stable with within normal range vital signs and no other emergent findings so no intervention or treatment is needed at this time. [facility] – [place] dermatology referral was requested and sent and patient understands to follow-up with clinic. After discussion of diagnosis and plan of care patient has no further needs, questions, or concerns and states clear understanding to return to the emergency department for any worsening symptoms. This documentation was generated using [employer] dictation system, please disregard any oddities of phrase or misspellings. Quality:SDOH Health Related Social Needs: No Data to Display PFSH All Active Problems Lesion of skin of left ear (Acute) Actinic keratoses (Acute) History of skin cancer (Acute) Left ear Tubular adenoma of colon (Acute ~04/2021) 04/2021, due 2025 colonoscopy Essential hypertension (Acute) Hemorrhoids (Acute) Elevated PSA (Acute) 2020, PSA-10.1 followed by [facility] Urology Family history of prostate cancer (Acute) Hyperlipidemia (Acute) Medical History History of tobacco use Adenomatous polyps Surgical History Colonoscopy - IV Sedation 2020 Extraction of cataract Family History Mother , age 91 Essential hypertension Heart disease Hyperlipidemia Stroke Father , age 87 Essential hypertension Hyperlipidemia Neoplasm PROSTATE Stroke Sister No problems noted. Brother No problems noted. Maternal Grandfather , AGE 84 Heart disease Stroke Paternal Grandfather , age 53 Stomach cancer Maternal Grandmother , age 58 Heart disease Paternal Grandmother , age 58 Stomach cancer Sister No problems noted. Sister No problems noted. Daughter No problems noted. Social History Smoking/Tobacco Use Status: Former Tobacco Use Quit Date: 08/29/81 Tobacco: How many years used: 7 Second Hand Exposure: No Smoking risk assessment performed?: Yes Alcohol Intake: current Alcohol Intake frequency: a few times a week Alcohol type: wine Drug use: Never Substance use type: does not use Caregiver/Support person: No Household members: spouse Housing: house Communication Needs: None Pets and animals: No Sexually active: Yes Do you think of yourself as: straight/heterosexual Current gender identity: male What is your relationship status?: How often do you talk on the phone with friends or family?: once per week How often do you get together with friends or relatives?: once per week How often do you attend oriental orthodox or sabianist services?: 1-3 times per year Do you belong to any clubs or organized social groups?: yes Panel score (0-1 are the most socially isolated patients): 2 What type of physical activity do you participate in: walking Duration: 60-90 minutes/day Frequency: daily Brooke/Jain: No preference Special brooke needs: No Seatbelt use: always Helmet use: No Drive intox or ride w/intox taxi driver supervisor: No Do you feel safe at home: Yes Do you feel safe in your relationship?: Yes PAWSS Have you Been Recently Intoxicated or Drunk Within the Last 30 days?: No Have you Ever Experienced Previous Episodes of Alcohol Withdrawal?: No Have you ever Experienced Withdrawal Seizures?: No Have you ever Experienced Delirium Tremens(DT)s?: No Have you ever undergone Alcohol Rehabilitation Treatment (i.e, inpt ot outpatient treatment programs)?: No Have you ever Experienced Blackouts?: No Have you ever Combined Alcohol with other Downers within the last 90 days?: No Have you ever Combined Alcohol with any other Substance of Abuse during the last 90 days?: No Positive Blood Alcohol level on Presentation? [PCS.BAL]: No Evidence of Increased Autonomic Activity (i.e. HR>120, tremor, sweating, agitation, nausea)?: No Result: 0
== END 2024-12-07 12:11 | disposition home or self-care (01) ==
PROVIDERS: Emergency Provider Nurse Practitioner Family; PCP Nurse Practitioner Family
DX: L98.9 Disorder of the skin and subcutaneous tissue, unspecified (principal); I10 Essential (primary) hypertension; E78.5 Hyperlipidemia, unspecified; Z85.828 Personal history of other malignant neoplasm of skin; Z87.891 Personal history of nicotine dependence; Z79.82 Long term (current) use of aspirin
CPT/HCPCS: 99283

== ENCOUNTER 2025-04-26 01:01 | Outpatient (CLI) | payer MEDICARE, BC, SELFPAY ==
[2025-04-26 18:53] LABS: PSA, Diagnostic 8.1 ng/mL (<=6.5)
== END 2025-04-26 01:02 | disposition home or self-care (01) ==
LOC: LBO 01:01
PROVIDERS: PCP Nurse Practitioner Family; Visit Provider Urology
DX: R97.20 Elevated prostate specific antigen [PSA] (principal)
CPT/HCPCS: 36415; 84153

== ENCOUNTER → 2025-05-03 08:09 | Outpatient (BNVA) | payer MEDICARE, BC, SELFPAY | PROVIDERS: PCP Nurse Practitioner Family; Visit Provider Urology | DX: Z80.42 Family history of malignant neoplasm of prostate (principal); R97.20 Elevated prostate specific antigen [PSA] | CPT/HCPCS: 99214 ==

== ENCOUNTER 2025-07-02 01:22 | Outpatient (CLI) | payer MEDICARE, BC, SELFPAY ==
[2025-07-02 09:21] LABS: Anion Gap 8.1 mmol/L (3-11); BUN 22 mg/dL (7-18); CO2 30.9 mmol/L (21.0-32.0); Calcium 9.7 mg/dL (8.5-10.1); Chloride 100 mmol/L (98-107); Glucose 101 mg/dL (74-106); Potassium 4.0 mmol/L (3.5-5.1); Sodium 139 mmol/L (136-145); TSH (W/Ref FT4) 2.64 uIU/mL (0.36-3.74); Vitamin B12 405 pg/mL (193-986)
== END 2025-07-02 01:23 | disposition home or self-care (01) ==
LOC: LBO 01:22
PROVIDERS: PCP Nurse Practitioner Family; Visit Provider Nurse Practitioner Family
DX: R41.3 Other amnesia (principal); Z13.1 Encounter for screening for diabetes mellitus; E03.9 Hypothyroidism, unspecified
CPT/HCPCS: 36415; 80048; 82607; 84443